=== PATIENT | male | born 2000 | race Two or more races ===

== ENCOUNTER 2022-09-12 14:48 | Emergency (ER) | payer BC ==
[~2022-09-12] VITALS: Ht 180.3 cm; Wt 70.0 kg
[2022-09-12 15:22] LABS: BASOPHILS # (AUTO) 0.1 X10'3 (0-0.2); BASOPHILS % (AUTO) 0.7 % (0-1); EOSINOPHILS # (AUTO) 0.2 X10'3 (0-0.9); EOSINOPHILS % (AUTO) 2.4 % (0-6); HEMATOCRIT 43.5 % (42.0-52.0); HEMOGLOBIN 14.8 g/dl (14.0-17.9); LYMPHOCYTES # (AUTO) 3.3 X10'3 (1.1-4.8); LYMPHOCYTES % (AUTO) 37.1 % (21-51); MEAN CORPUSCULAR HEMOGLOBIN 30.3 PG (27.0-31.0); MEAN CORPUSCULAR VOLUME 88.9 FL (78-98); MEAN PLATELET VOLUME 7.1 FL (7.4-10.4); MONOCYTES # (AUTO) 0.8 X10'3 (0-0.9); MONOCYTES % (AUTO) 8.8 % (2-12); NEUTROPHILS # (AUTO) 4.5 X10'3 (1.8-7.7); PLATELET COUNT 330 X10'3 (140-440); RED BLOOD COUNT 4.89 X10'6 (4.70-6.10); RED CELL DISTRIBUTION WIDTH 12.6 % (11.5-14.5); WHITE BLOOD COUNT 8.9 X10'3 (4.5-11.0)
[2022-09-12 15:28] LABS: ALANINE AMINOTRANSFERASE 13 U/L (12-78); ALBUMIN 4.7 G/DL (3.4-5.0); ALBUMIN/GLOBULIN RATIO 1.4 (1.1-1.5); ALKALINE PHOSPHATASE 93 IU/L (20-180); ANION GAP 15 (8-16); ASPARTATE AMINO TRANSFERASE 16 U/L (10-37); BILIRUBIN,TOTAL 0.9 MG/DL (0.1-1.0); BLOOD UREA NITROGEN 8 MG/DL (7-18); CALCIUM 9.5 MG/DL (8.5-10.1); CHLORIDE 105 MMOL/L (99-107); CREATININE 1.34 MG/DL (0.60-1.10); GLUCOSE 96 MG/DL (70-104); LIPASE < 50 U/L (73-393); POTASSIUM 3.5 MMOL/L (3.5-5.1); SODIUM 141 MMOL/L (135-145); TOTAL CARBON DIOXIDE 21.4 MMOL/L (24-32); TOTAL PROTEIN 8.1 G/DL (6.4-8.2); eGFR 68 ML/MIN
[2022-09-12 15:58] LABS: CLARITY,URINE CLEAR (Clear); COLOR,URINE YELLOW (Yellow); GLUCOSE, URINE NEGATIVE (Neg); KETONES,URINE 15 mg/dl (Neg); LEUKOCYTE ESTERASE ,URINE NEGATIVE (Neg); NITRITES, URINE NEGATIVE (Neg); OCCULT BLOOD,URINE MODERATE (Neg); PROTEIN,URINE TRACE mg/dl (Neg)
[2022-09-12 16:04] LABS: UA COLLECTION TYPE CLN CATCH MIDSTREAM
[2022-09-12 16:05] LABS: BACTERIA,URINE FEW /HPF (Neg); SQUAMOUS EPITHELIAL CELL,UR FEW /LPF (FEW)
[2022-09-12 16:06] LABS: MUCUS STRANDS MODERATE /LPF (Neg)
[2022-09-12] MEDS ORDERED: ketorolac tromethamine 15mg/ml inj. IM ONE (16:20)
[2022-09-12] MEDS ORDERED: normal saline 1000ml 1,000 ML IV ONE ×2 (16:25→17:40)
[2022-09-12] MEDS ORDERED: CefTRIAXone 2gm/D5W 50ml BAG 50 ML IV ONE (17:40)
[2022-09-12 18:18] VITALS: BP 119/86
[2022-09-12] MEDS ORDERED: ONDA-103 PO (18:58)
[2022-09-12] MEDS ORDERED: FLO0.4C PO (18:58)
[2022-09-12] MEDS ORDERED: IBUP-1986 PO (18:58)
[2022-09-12] MEDS ORDERED: CEPH-585 PO (18:58)
[2022-09-12] MEDS ORDERED: HYDR-3973 PO (18:58)
== END 2022-09-12 19:35 | disposition home or self-care (01) ==
LOC: ER 14:49
DX: N20.0 Calculus of kidney (principal); M54.50 Low back pain, unspecified; Z79.899 Other long term (current) drug therapy
CPT/HCPCS: 36415; 74176; 80053; 81001; 83690; 85025; 87088; 96361; 96365; 96372; 99285; J0696; J1885; J7030; 96375